=== PATIENT | female | born 1990 | race Caucasian/White ===

== ENCOUNTER → 2017-10-24 | Outpatient (CLI) | payer BC ==
--- NOTE | 2017-10-24 09:18 | NM ---
EXAMINATION TYPE: NM gastric emptying study DATE OF EXAM: 10/24/2017 COMPARISON: NONE HISTORY: R11.2 Nausea and vomiting Following administration of 2.1 mCi Tc 99m Sulfur Colloid with 1 cup of oatmeal projection images of the abdomen were obtained 10 minutes post ingestion. When possible, both anterior and posterior proje ction images were obtained to allow the calculation of the geometric mean activity. Clearance: 55 % Half-life: 56 min Gastroesophagel reflux: None IMPRESSION: Slightly diminished T1/2 of 56 minutes versus a normal range of 1605 minutes. Correlate f or a mild degree of gastroparesis. Gastric emptying normal percentage values: 30 minutes: <70% of retention (> 30% emptying) suggests abnormally fast emptying. 60 minutes: <90% retention (>10% emptying) is normal; less than 30% retention (>70% emptying) suggest s abnormally rapid empying. 90 minutes: <65% retention (> 35% emptying) is normal. 120 minutes: <60% retention (> 40% emptying) is normal. 180 minutes: <30% retention (> 70% emptying) is normal. Gastric emptying T-1/2: Solid: The normal range is 60-105 minutes Liquid only: Normal range is 10-45 minutes. Liquid only-children: At 60 minutes, normal range is 44-58 % . Liquid only-infants: At 60 minutes, normal range is 32-64 %. Additional references: Gastric Emptying Scintigraphy [email or web address]
== END | disposition home or self-care (01) ==
LOC: RADNMMAIN 06:55
PROVIDERS: ATTEND Internal Medicine Gastroenterology
DX: R11.2 Nausea with vomiting, unspecified (principal)
CPT/HCPCS: 78264; A9541